=== PATIENT | male | born 1950 | race African-American/Black ===

== ENCOUNTER 2018-03-08 09:49 | Emergency (ER) | payer MEDICARE, OTHER ==
[~2018-03-08] VITALS: Ht 170.2 cm; Wt 70.0 kg
[~2018-03-08 09:49] MED LIST: AMIT10TA6 PO; ASPI81TA47 PO; CILO100T PO; CIME300T55 PO; CLOP75TA33 PO; FLUO40CA8 PO; ZYDS20 PO
[2018-03-08] MEDS ORDERED: PANTOPRAZOLE SODIUM 40 MG/VIAL IV STA (10:23)
[2018-03-08] MEDS ORDERED: FAMOTIDINE 20MG/2ML VIAL IV STA (10:23)
[2018-03-08] MEDS ORDERED: SODIUM CHLORIDE 0.9% 1,000 ML IV ONE (10:23)
[2018-03-08 10:43] LABS: BASOPHILS % 1.2 % (0.0-2.0); CLARITY URINE CLEAR (CLEAR); COLOR URINE YELLOW (YELLOW); EOSINOPHILS % 0.5 % (0.0-5.0); HEMATOCRIT. 44.9 % (42.0-52.0); KETONES URINE NEGATIVE (NEGATIVE); LEUKOCYTE ESTERASE URINE NEGATIVE (NEGATIVE); LYMPHOCYTES % 39.6 % (20.0-50.0); MEAN CORPUSCULAR HEMOGLOBIN 31.4 pg (28.0-32.0); MEAN CORPUSCULAR VOLUME 94.1 fL (80.0-94.0); MEAN PLATELET VOLUME 8.1 fl (7.4-10.4); MONOCYTES % 12.2 % (2.0-8.0); NEUTROPHILS % 46.5 % (40.0-76.0); NITRITE URINE NEGATIVE (NEGATIVE); OCCULT BLOOD URINE NEGATIVE (NEGATIVE); PH URINE 5.5 (4.5-8.0); PLATELET 280 x1000/uL (130-400); PROTEIN URINE NEGATIVE (NEGATIVE); RED BLOOD CELL COUNT 4.77 mill/uL (4.7-6.1); RED CELL DISTRIBUTION WIDTH 15.2 % (11.6-14.6); SPECIFIC GRAVITY URINE 1.011 (1.005-1.030); UROBILINOGEN URINE 0.2 E.U./dL (0.2-1.0)
[2018-03-08 10:49] LABS: CHLORIDE 106 mEq/L (98-107)
[2018-03-08 11:58] VITALS: BP 122/76
== END 2018-03-08 12:00 | disposition home or self-care (01) ==
LOC: ER 10:55
DX: R10.13 Epigastric pain (principal)
CPT/HCPCS: 36415; 71045; 80053; 81003; 83690; 85025; 93005; 96361; 96374; 96375; 99285; C9113; J3490; J7030

== ENCOUNTER 2018-05-23 10:39 | Emergency (ER) | payer MEDICARE, OTHER ==
[~2018-05-23] VITALS: Ht 170.2 cm; Wt 70.5 kg
[2018-05-23] MEDS ORDERED: SODIUM CHLORIDE 0.9% 1,000 ML IV ONE (12:05)
[2018-05-23 14:03] LABS: BASOPHILS % 0.7 % (0.0-2.0); EOSINOPHILS % 0.5 % (0.0-5.0); HEMATOCRIT. 43.3 % (42.0-52.0); HEMOGLOBIN. 14.1 g/dL (14.0-18.0); LYMPHOCYTES % 34.7 % (20.0-50.0); MEAN CORPUSCULAR HEMOGLOBIN 30.7 pg (28.0-32.0); MEAN CORPUSCULAR VOLUME 94.3 fL (80.0-94.0); MEAN PLATELET VOLUME 9.4 fl (7.4-10.4); MONOCYTES % 8.5 % (2.0-8.0); NEUTROPHILS % 55.6 % (40.0-76.0); PLATELET 223 x1000/uL (130-400); RED BLOOD CELL COUNT 4.59 mill/uL (4.7-6.1); RED CELL DISTRIBUTION WIDTH 15.2 % (11.6-14.6)
[2018-05-23 14:09] LABS: CHLORIDE 110 mEq/L (98-107)
[2018-05-23 14:10] LABS: PROTHROMBIN TIME 10.4 sec (9.1-11.1)
[2018-05-23 14:13] LABS: ETHANOL BLOOD < 10 mg/dL
[2018-05-23 15:00] VITALS: BP 140/89
[2018-05-24] MEDS ORDERED: ALBU18HF2 IH (10:54)
[2018-05-24] MEDS ORDERED: AMLO10TA80 PO (18:56)
[2018-05-24] MEDS ORDERED: DANT50CA PO (18:56)
[2018-05-24] MEDS ORDERED: TAMS0.4C31 PO (18:56)
[2018-05-24] MEDS ORDERED: METO25TA6 PO (18:56)
[2018-05-24] MEDS ORDERED: PANT40TA4 PO (18:56)
[2018-05-24] MEDS ORDERED: LOSA50TA20 PO (18:56)
[2018-05-24] MEDS ORDERED: ATOR40TA70 PO (18:56)
[2018-05-24] MEDS ORDERED: MELO-104 PO (18:56)
[2018-05-25] MEDS ORDERED: LOSA50TA20 PO (12:29)
== END 2018-05-23 15:25 | disposition home or self-care (01) ==
LOC: ER 11:20 → CANBEDREQ 05-24 00:42
DX: R53.1 Weakness (principal); R42 Dizziness and giddiness; R51 Headache; R07.89 Other chest pain; R00.0 Tachycardia, unspecified; D17.79 Benign lipomatous neoplasm of other sites; J44.9 Chronic obstructive pulmonary disease, unspecified; I10 Essential (primary) hypertension; Z86.73 Personal history of transient ischemic attack (TIA), and cerebral infarction without residual deficits; Z98.890 Other specified postprocedural states; Z79.899 Other long term (current) drug therapy
CPT/HCPCS: 36415; 70450; 71045; 80053; 83605; 83690; 83880; 84145; 84484; 85025; 85610; 87040; 87077; 87186; 93005; 96360; 99284; G0482; J7030

== ENCOUNTER 2018-05-23 21:55 | Inpatient (IN) | payer MEDICARE, OTHER ==
[~2018-05-23] VITALS: Ht 170.2 cm; Wt 66.9 kg
[2018-05-24] MEDS ORDERED: ONDANSETRON HCL 4MG/2ML INJ IV STA (00:55)
[2018-05-24] MEDS ORDERED: SODIUM CHLORIDE 0.9% 1,000 ML IV ONE (01:03)
[2018-05-24 02:21] LABS: BASOPHILS % 0.7 % (0.0-2.0); CHLORIDE 111 mEq/L (98-107); EOSINOPHILS % 0.8 % (0.0-5.0); HEMATOCRIT. 40.4 % (42.0-52.0); HEMOGLOBIN. 13.2 g/dL (14.0-18.0); LYMPHOCYTES % 34.9 % (20.0-50.0); MEAN CORPUSCULAR HEMOGLOBIN 30.5 pg (28.0-32.0); MEAN CORPUSCULAR VOLUME 93.7 fL (80.0-94.0); MEAN PLATELET VOLUME 8.1 fl (7.4-10.4); MONOCYTES % 10.2 % (2.0-8.0); NEUTROPHILS % 53.4 % (40.0-76.0); PLATELET 258 x1000/uL (130-400); RED BLOOD CELL COUNT 4.31 mill/uL (4.7-6.1); RED CELL DISTRIBUTION WIDTH 14.9 % (11.6-14.6)
[2018-05-24] MEDS ORDERED: ACETAMINOPHEN 325MG TABLET PO ONE (04:15)
[2018-05-24 08:50] LABS: T4 FREE 1.1 ng/dL (0.76-1.46)
[2018-05-24 09:35] VITALS: BP 140/88
[2018-05-24] MEDS ORDERED: ALBU18HF2 IH (10:54)
[2018-05-24] MEDS ORDERED: PNEUMOCOCCAL 23-VAL P-SAC VAC 0.5 ML IM ONE (11:30)
[2018-05-24] MEDS ORDERED: INFLUENZA VIRUS VACCINE(AFLURIA) 0.5ML SYR IM ONE (11:30)
[2018-05-24 12:30] VITALS: BP 152/82
[2018-05-24] MEDS ORDERED: HYDROCODONE/ACETAMINOPHEN 5/325MG TABLET PO PRN (12:45)
[2018-05-24] MEDS ORDERED: DIPHENHYDRAMINE 50MG/ML VIAL IV PRN (12:45)
[2018-05-24] MEDS ORDERED: NA PHOS,M-B/NA PHOS,DI-BA ENEMA 118ML PR PRN (12:45)
[2018-05-24] MEDS ORDERED: GUAIFENESIN 200MG/10ML SUGAR FREE UDC PO PRN (12:45)
[2018-05-24] MEDS ORDERED: ACETAMINOPHEN 650MG SUPP PR PRN (12:45)
[2018-05-24] MEDS ORDERED: CLONIDINE 0.1MG TABLET PO PRN (12:45)
[2018-05-24] MEDS ORDERED: IPRATROPIUM/ALBUTEROL 0.5-3(2.5)MG/3ML NEB INH PRN (12:45)
[2018-05-24] MEDS ORDERED: ACETAMINOPHEN 325MG TABLET PO PRN (12:45)
[2018-05-24] MEDS ORDERED: MAGNESIUM/ALUMINUM HYDROXIDE/SIMETHICONE 30ML UDC PO PRN (12:45)
[2018-05-24] MEDS ORDERED: MEDICATION NOT ON FORMULARY EA (Fluoxetine Hcl (Prozac) 40 MG) PO SCH (13:00)
[2018-05-24] MEDS ORDERED: CILOSTAZOL 100 MG PO SCH (13:00)
[2018-05-24] MEDS ORDERED: ALBUTEROL 6.7GM HFA INHALER INH PRN (13:00)
[2018-05-24] MEDS ORDERED: ASPIRIN 81 MG PO SCH (13:00)
[2018-05-24] MEDS ORDERED: OLANZAPINE 20 MG PO SCH (13:00)
[2018-05-24] MEDS ORDERED: MEDICATION NOT ON FORMULARY EA (Clopidogrel Bisulfate (Clopidogrel) 75 MG) PO SCH (13:00)
[2018-05-24] MEDS ORDERED: ALBUTEROL (0.083%) 2.5MG/3ML NEB HHN PRN (13:15)
[2018-05-24] MEDS: DOCUSATE SODIUM 100MG CAPSULE PO PRN (13:55)
[2018-05-24] MEDS: FLUOXETINE HCL 20MG CAPSULE PO SCH (13:55)
[2018-05-24] MEDS: CLOPIDOGREL 75MG TABLET PO SCH (13:55)
[2018-05-24] MEDS: OLANZAPINE 10MG TABLET PO SCH (13:55)
[2018-05-24] MEDS: ASPIRIN 81MG EC TABLET PO SCH (13:55)
[2018-05-24] MEDS: HYDROCODONE/ACETAMINOPHEN 10/325MG TABLET PO PRN (13:56)
[2018-05-24] MEDS: ENOXAPARIN 40MG/0.4ML SYR SUBCUT SCH (13:56)
[2018-05-24] MEDS: SODIUM CHLORIDE 0.9% INJ 3ML FLUSH IVF SCH ×2 (14:32→21:43)
[2018-05-24] MEDS ORDERED: CILOSTAZOL 100MG TABLET PO SCH (15:00)
[2018-05-24] MEDS: CILOSTAZOL 50 MG TABLET PO SCH (15:05)
[2018-05-24 15:38] LABS: CREATINE KINASE MB FRACTION < 1.0 ng/mL (0.5-3.6)
[2018-05-24 15:40] LABS: CREATINE KINASE 70 IU/L (39-308)
[2018-05-24 16:00] VITALS: BP 120/79
[2018-05-24 16:31] LABS: CLARITY URINE CLEAR (CLEAR); COLOR URINE YELLOW (YELLOW); KETONES URINE NEGATIVE (NEGATIVE); LEUKOCYTE ESTERASE URINE NEGATIVE (NEGATIVE); NITRITE URINE NEGATIVE (NEGATIVE); OCCULT BLOOD URINE NEGATIVE (NEGATIVE); PH URINE 6.5 (4.5-8.0); PROTEIN URINE NEGATIVE (NEGATIVE); SPECIFIC GRAVITY URINE 1.008 (1.005-1.030); UROBILINOGEN URINE 0.2 E.U./dL (0.2-1.0)
[2018-05-24 16:45] LABS: *AMPHETAMINES SCREEN URINE NEGATIVE (NEGATIVE); *BARBITURATES SCREEN URINE NEGATIVE (NEGATIVE); *BENZODIAZEPINES SCREEN URINE NEGATIVE (NEGATIVE); *COCAINE SCREEN URINE NEGATIVE (NEGATIVE); METHADONE URINE SCREEN NEGATIVE (NEGATIVE)
[2018-05-24 16:46] LABS: CANNABINOID URINE SCREEN PRESUMTIVE POSITIVE (NEGATIVE); OPIATES URINE SCREEN NEGATIVE (NEGATIVE); PHENCYCLIDINE URINE SCREEN NEGATIVE (NEGATIVE)
[2018-05-24] MEDS ORDERED: METO25TA6 PO (18:56)
[2018-05-24] MEDS ORDERED: ATOR40TA70 PO (18:56)
[2018-05-24] MEDS ORDERED: MELO-104 PO (18:56)
[2018-05-24] MEDS ORDERED: DANT50CA PO (18:56)
[2018-05-24] MEDS ORDERED: PANT40TA4 PO (18:56)
[2018-05-24] MEDS ORDERED: LOSA50TA20 PO (18:56)
[2018-05-24] MEDS ORDERED: AMLO10TA80 PO (18:56)
[2018-05-24] MEDS ORDERED: TAMS0.4C31 PO (18:56)
[2018-05-24 20:00] VITALS: BP 119/74
[2018-05-24] MEDS ORDERED: ATORVASTATIN CALCIUM 10MG TABLET PO SCH (21:00)
[2018-05-24] MEDS: ATORVASTATIN CALCIUM 40MG TABLET PO SCH (21:29)
[2018-05-24] MEDS: METOPROLOL TARTRATE 25MG TABLET PO SCH (21:30)
[2018-05-24] MEDS: AMLODIPINE 5MG TABLET PO SCH (21:30)
[2018-05-24] MEDS: MELOXICAM 7.5MG TABLET PO SCH (21:31)
[2018-05-24] MEDS: TAMSULOSIN HCL 0.4MG SR CAPSULE PO SCH (21:31)
[2018-05-24] MEDS: DANTROLENE SODIUM 25MG CAPSULE PO SCH (21:42)
[2018-05-25] VITALS (8 sets, daily range): BP systolic 78–126; BP diastolic 52–84
[2018-05-25 00:58] LABS: CREATINE KINASE 60 IU/L (39-308)
[2018-05-25 01:00] LABS: CREATINE KINASE MB FRACTION < 1.0 ng/mL (0.5-3.6)
[2018-05-25] MEDS: SODIUM CHLORIDE 0.9% INJ 3ML FLUSH IVF SCH ×3 (06:34→21:11)
[2018-05-25] MEDS: PANTOPRAZOLE 40MG DR TABLET PO SCH (06:34)
[2018-05-25 07:32] LABS: BASOPHILS % 0.7 % (0.0-2.0); EOSINOPHILS % 1.2 % (0.0-5.0); HEMATOCRIT. 39.7 % (42.0-52.0); HEMOGLOBIN. 13.1 g/dL (14.0-18.0); LYMPHOCYTES % 22.2 % (20.0-50.0); MEAN CORPUSCULAR HEMOGLOBIN 30.8 pg (28.0-32.0); MEAN CORPUSCULAR VOLUME 93.4 fL (80.0-94.0); MONOCYTES % 10.1 % (2.0-8.0); NEUTROPHILS % 65.8 % (40.0-76.0); PLATELET 258 x1000/uL (130-400); RED BLOOD CELL COUNT 4.25 mill/uL (4.7-6.1)
[2018-05-25 08:00] LABS: CHLORIDE 111 mEq/L (98-107)
[2018-05-25 08:09] LABS: LDL CHOLESTEROL 135 mg/dL (5-100)
[2018-05-25 08:10] LABS: CREATINE KINASE 54 IU/L (39-308); HDL CHOLESTEROL 50 mg/dL (40-59)
[2018-05-25 08:13] LABS: CREATINE KINASE MB FRACTION < 1.0 ng/mL (0.5-3.6)
[2018-05-25] MEDS ORDERED: AMLODIPINE 10MG TABLET PO SCH (09:00)
[2018-05-25] MEDS: CILOSTAZOL 50 MG TABLET PO SCH (09:16)
[2018-05-25] MEDS: DANTROLENE SODIUM 25MG CAPSULE PO SCH ×2 (09:16→18:36)
[2018-05-25] MEDS: METOPROLOL TARTRATE 25MG TABLET PO SCH ×2 (09:16→21:00)
[2018-05-25] MEDS: AMLODIPINE 5MG TABLET PO SCH (09:16)
[2018-05-25] MEDS: ENOXAPARIN 40MG/0.4ML SYR SUBCUT SCH (09:17)
[2018-05-25] MEDS: AMITRIPTYLINE 10MG TABLET PO SCH (09:17)
[2018-05-25] MEDS: MELOXICAM 7.5MG TABLET PO SCH (09:17)
[2018-05-25] MEDS: LOSARTAN POTASSIUM 50 MG TABLET PO SCH (09:17)
[2018-05-25] MEDS: DOCUSATE SODIUM 100MG CAPSULE PO PRN ×2 (09:17→18:36)
[2018-05-25] MEDS: CLOPIDOGREL 75MG TABLET PO SCH (09:17)
[2018-05-25] MEDS: FLUOXETINE HCL 20MG CAPSULE PO SCH (09:17)
[2018-05-25] MEDS: ASPIRIN 81MG EC TABLET PO SCH (09:17)
[2018-05-25] MEDS: OLANZAPINE 10MG TABLET PO SCH (09:17)
[2018-05-25] MEDS ORDERED: LOSA50TA20 PO (12:29)
[2018-05-25] MEDS ORDERED: SODIUM CHLORIDE 0.9% 1000ML BAG (SEPSIS BOLUS) IV ONE (13:30)
[2018-05-25] MEDS ORDERED: SODIUM CHLORIDE 0.9% 500ML IV NR (13:45)
[2018-05-25] MEDS ORDERED: ALBUMIN HUMAN 25GM/100ML (25%) IV NR (17:00)
[2018-05-25] MEDS: TAMSULOSIN HCL 0.4MG SR CAPSULE PO SCH (21:00)
[2018-05-25] MEDS: ATORVASTATIN CALCIUM 40MG TABLET PO SCH (21:10)
[2018-05-26] VITALS (8 sets, daily range): BP systolic 83–118; BP diastolic 53–70
[2018-05-26] MEDS: HYDROCODONE/ACETAMINOPHEN 10/325MG TABLET PO PRN ×2 (02:49→11:49)
[2018-05-26] MEDS: PANTOPRAZOLE 40MG DR TABLET PO SCH (05:48)
[2018-05-26] MEDS: SODIUM CHLORIDE 0.9% INJ 3ML FLUSH IVF SCH ×2 (05:48→13:55)
[2018-05-26] MEDS: METOPROLOL TARTRATE 25MG TABLET PO SCH (09:00)
[2018-05-26] MEDS: FLUOXETINE HCL 20MG CAPSULE PO SCH (09:03)
[2018-05-26] MEDS: CILOSTAZOL 50 MG TABLET PO SCH (09:03)
[2018-05-26] MEDS: ASPIRIN 81MG EC TABLET PO SCH (09:03)
[2018-05-26] MEDS: MELOXICAM 7.5MG TABLET PO SCH (09:03)
[2018-05-26] MEDS: CLOPIDOGREL 75MG TABLET PO SCH (09:03)
[2018-05-26] MEDS: AMITRIPTYLINE 10MG TABLET PO SCH (09:03)
[2018-05-26] MEDS: DOCUSATE SODIUM 100MG CAPSULE PO PRN (09:04)
[2018-05-26] MEDS: OLANZAPINE 10MG TABLET PO SCH (09:04)
[2018-05-26] MEDS: DANTROLENE SODIUM 25MG CAPSULE PO SCH (09:04)
[2018-05-26] MEDS: LOSARTAN POTASSIUM 50 MG TABLET PO SCH (09:04)
[2018-05-26] MEDS: ENOXAPARIN 40MG/0.4ML SYR SUBCUT SCH (09:06)
[2018-05-26] MEDS ORDERED: SODIUM CHLORIDE 0.9% 1000ML BAG (SEPSIS BOLUS) IV ONE (15:00)
[2018-05-26] MEDS ORDERED: SODIUM CHLORIDE 0.9% 500ML IV NR (15:00)
== END 2018-05-26 16:33 | disposition home or self-care (01) | DRG 312 ==
LOC: ER 21:55 → 5WST 05-24 01:22 → ENRESERV 05-24 08:31
PROVIDERS: ADMIT Family Medicine; ATTEND Family Medicine
DX: I95.1 Orthostatic hypotension (principal); I69.351 Hemiplegia and hemiparesis following cerebral infarction affecting right dominant side; J44.9 Chronic obstructive pulmonary disease, unspecified; I10 Essential (primary) hypertension; I73.9 Peripheral vascular disease, unspecified; E78.5 Hyperlipidemia, unspecified; Z87.891 Personal history of nicotine dependence; Z91.19 Patient's noncompliance with other medical treatment and regimen
CPT/HCPCS: 36415; 71045; 80048; 80061; 80305; 82550; 82553; 83036; 83605; 83880; 84145; 84439; 84443; 84484; 85379; 87077; 87186; 90686; 90732; 93005; 93306; 93880; 93970; 96360; 96361; 96374; 99284; 99285; G0482; J1650; J2405; J7030; J7040; P9047

== ENCOUNTER 2020-08-29 10:40 | Emergency (ER) | payer MEDICARE, OTHER ==
[~2020-08-29] VITALS: Ht 170.2 cm; Wt 72.0 kg
[~2020-08-29 10:40] MED LIST changes: +ALBU18HF2 IH; +ATOR40TA70 PO; -CIME300T55 PO; +DANT50CA PO; +MELO-104 PO; +PANT40TA51 PO; +TAMS0.4C31 PO
[2020-08-29] MEDS ORDERED: IBUPROFEN 800MG TABLET PO ONE (12:45)
[2020-08-29] MEDS ORDERED: T3 PO (12:47)
[2020-08-29] MEDS ORDERED: IBUP-2028 PO (12:47)
[2020-08-29 13:06] VITALS: BP 147/82
== END 2020-08-29 13:08 | disposition home or self-care (01) ==
LOC: ER 10:40
DX: M54.42 Lumbago with sciatica, left side (principal); M25.562 Pain in left knee; M25.552 Pain in left hip; Z91.81 History of falling; Z86.73 Personal history of transient ischemic attack (TIA), and cerebral infarction without residual deficits
CPT/HCPCS: 72100; 73502; 73562; 99284

== ENCOUNTER 2021-01-17 18:44 | Emergency (ER) | payer MEDICARE, OTHER ==
[~2021-01-17] VITALS: Ht 170.2 cm; Wt 69.0 kg
[~2021-01-17 18:44] MED LIST changes: +IBUP-2028 PO; +T3 PO
[2021-01-17] MEDS ORDERED: MORPHINE SULFATE 4 MG/ML CPJ (NOT FOR IM USE) IV STA (21:40)
[2021-01-17 22:13] LABS: BASOPHILS % 0.7 % (0.0-2.0); EOSINOPHILS % 1.3 % (0.0-5.0); HEMATOCRIT. 36.5 % (42.0-52.0); HEMOGLOBIN. 12.6 g/dL (14.0-18.0); LYMPHOCYTES % 33.8 % (20.0-50.0); MEAN CORPUSCULAR HEMOGLOBIN 31.7 pg (28.0-32.0); MEAN PLATELET VOLUME 7.5 fl (7.4-10.4); MONOCYTES % 10.2 % (2.0-8.0); PLATELET 245 x1000/uL (130-400); RED BLOOD CELL COUNT 3.97 mill/uL (4.7-6.1); RED CELL DISTRIBUTION WIDTH 15.6 % (11.6-14.6)
[2021-01-17 22:20] LABS: CHLORIDE 104 mEq/L (98-107)
[2021-01-17 22:21] LABS: PROTHROMBIN TIME 10.3 sec (9.6-11.0)
[2021-01-17 22:38] LABS: CLARITY URINE CLEAR (CLEAR); COLOR URINE YELLOW (YELLOW); KETONES URINE NEGATIVE (NEGATIVE); LEUKOCYTE ESTERASE URINE NEGATIVE (NEGATIVE); NITRITE URINE NEGATIVE (NEGATIVE); OCCULT BLOOD URINE NEGATIVE (NEGATIVE); PH URINE 6.5 (4.5-8.0); PROTEIN URINE NEGATIVE (NEGATIVE); SPECIFIC GRAVITY URINE 1.003 (1.005-1.030); UROBILINOGEN URINE 0.2 E.U./dL (0.2-1.0)
[2021-01-17] MEDS ORDERED: NA PHOS,M-B/NA PHOS,DI-BA ENEMA 118ML PR ONE (23:15)
[2021-01-17] MEDS ORDERED: POLY17PO3 MT (23:54)
[2021-01-17] MEDS ORDERED: BISA-81 MT (23:54)
[2021-01-17] MEDS ORDERED: NA P133E4 RC (23:54)
[2021-01-18 00:07] VITALS: BP 125/85
== END 2021-01-18 00:10 | disposition home or self-care (01) ==
LOC: ER 19:04 → EDBEDREQ 21:43 → ER 01-18 00:10 → CANBEDREQ 01-18 03:35
DX: K59.00 Constipation, unspecified (principal); Z86.73 Personal history of transient ischemic attack (TIA), and cerebral infarction without residual deficits; Z96.698 Presence of other orthopedic joint implants
CPT/HCPCS: 36415; 74176; 80053; 81003; 83690; 84484; 85025; 85610; 93005; 96374; 99285; J2270

== ENCOUNTER → 2021-02-03 | Outpatient (CLI) | payer MEDICARE, OTHER ==
[~2021-02-03] MED LIST changes: +BISA-81 MT; +GADOTERATE MEGLUMINE 5 MMOL/10 ML VIAL IV ONE; +NA P133E4 RC; +POLY17PO3 MT
== END | disposition home or self-care (01) ==
LOC: MRI 09:34
PROVIDERS: ATTEND Internal Medicine Cardiovascular Disease
DX: I67.82 Cerebral ischemia (principal); R20.0 Anesthesia of skin
CPT/HCPCS: 70553; A9577

== ENCOUNTER 2022-01-04 13:18 | Emergency (ER) | payer MEDICARE, MEDICAID ==
[~2022-01-04] VITALS: Ht 170.2 cm; Wt 80.0 kg
[~2022-01-04 13:18] MED LIST changes: -GADOTERATE MEGLUMINE 5 MMOL/10 ML VIAL IV ONE
[2022-01-04] MEDS ORDERED: KETOROLAC 30MG/ML VIAL IV STA (19:00)
[2022-01-04 19:21] LABS: BASOPHILS % 0.7 % (0.0-2.0); EOSINOPHILS % 0.7 % (0.0-5.0); HEMATOCRIT. 41.9 % (42.0-52.0); HEMOGLOBIN. 13.9 g/dL (14.0-18.0); LYMPHOCYTES % 37.5 % (20.0-50.0); MEAN CORPUSCULAR HEMOGLOBIN 32.1 pg (28.0-32.0); MEAN CORPUSCULAR VOLUME 97.1 fL (80.0-94.0); MEAN PLATELET VOLUME 7.5 fl (7.4-10.4); NEUTROPHILS % 49.1 % (40.0-76.0); PLATELET 280 x1000/uL (130-400); RED BLOOD CELL COUNT 4.32 mill/uL (4.7-6.1); RED CELL DISTRIBUTION WIDTH 15.2 % (11.6-14.6)
[2022-01-04 19:28] LABS: CHLORIDE 96 mEq/L (98-107)
[2022-01-04 21:24] VITALS: BP 154/88
== END 2022-01-04 21:25 | disposition home or self-care (01) ==
LOC: ER 14:02
DX: R60.9 Edema, unspecified (principal); Z86.73 Personal history of transient ischemic attack (TIA), and cerebral infarction without residual deficits; Z79.899 Other long term (current) drug therapy
CPT/HCPCS: 36415; 71045; 80053; 83880; 85025; 93005; 93970; 96374; 99285; J1885

== ENCOUNTER 2022-08-06 07:05 | Inpatient (IN) | payer MEDICARE, OTHER ==
[~2022-08-06] VITALS: Ht 170.2 cm; Wt 68.5 kg
[~2022-08-06 07:05] MED LIST changes: -CILO100T PO; +CILO100T3 PO
[2022-08-06 08:33] LABS: BASOPHILS % 0.8 % (0.0-2.0); EOSINOPHILS % 0.5 % (0.0-5.0); HEMATOCRIT. 37.4 % (42.0-52.0); HEMOGLOBIN. 12.8 g/dL (14.0-18.0); LYMPHOCYTES % 46.2 % (20.0-50.0); MEAN CORPUSCULAR HEMOGLOBIN 32.6 pg (28.0-32.0); MEAN PLATELET VOLUME 7.2 fl (7.4-10.4); MONOCYTES % 13.6 % (2.0-8.0); NEUTROPHILS % 38.9 % (40.0-76.0); PLATELET 251 x1000/uL (130-400); RED BLOOD CELL COUNT 3.93 mill/uL (4.7-6.1); RED CELL DISTRIBUTION WIDTH 14.5 % (11.6-14.6)
[2022-08-06 08:46] LABS: CHLORIDE 94 mEq/L (98-107)
[2022-08-06 10:20] VITALS: BP 119/96
[2022-08-06 10:22] LABS: CLARITY URINE CLEAR (CLEAR); COLOR URINE YELLOW (YELLOW); KETONES URINE NEGATIVE (NEGATIVE); LEUKOCYTE ESTERASE URINE TRACE (NEGATIVE); NITRITE URINE NEGATIVE (NEGATIVE); OCCULT BLOOD URINE NEGATIVE (NEGATIVE); PH URINE 5.5 (4.5-8.0); PROTEIN URINE NEGATIVE (NEGATIVE); SPECIFIC GRAVITY URINE 1.005 (1.005-1.030); UROBILINOGEN URINE 0.2 E.U./dL (0.2-1.0)
[2022-08-06 11:56] VITALS: BP 150/95
[2022-08-06] MEDS: PANTOPRAZOLE SODIUM 40 MG/VIAL IV SCH ×2 (12:33→22:17)
[2022-08-06 12:48] LABS: TOTAL IRON BINDING CAPACITY 351 ug/dL (250-450)
[2022-08-06 13:14] LABS: FOLIC ACID (FOLATE) SERUM 15.6 ng/mL (>5.38)
[2022-08-06] MEDS ORDERED: LORAZEPAM 0.5MG TABLET PO PRN (13:45)
[2022-08-06] MEDS ORDERED: IPRATROPIUM/ALBUTEROL 0.5-3(2.5)MG/3ML NEB HHN PRN (13:45)
[2022-08-06] MEDS ORDERED: DOCUSATE SODIUM 100MG CAPSULE PO PRN (13:45)
[2022-08-06] MEDS ORDERED: ACETAMINOPHEN 325MG TABLET PO PRN ×2 (13:45)
[2022-08-06] MEDS ORDERED: ONDANSETRON HCL 4MG/2ML INJ IV PRN (13:45)
[2022-08-06] MEDS: SODIUM CHLORIDE 0.9% 1,000 ML IV SCH (14:17)
[2022-08-06] MEDS ORDERED: LACTULOSE 20G/30ML UDC PO NR (16:45)
[2022-08-06 17:05] VITALS: BP 141/90
[2022-08-06] MEDS: CEFTRIAXONE 1GM PREMIX 50 ML IV SCH (17:06)
[2022-08-06] MEDS: HYDROCODONE/ACETAMINOPHEN 5/325MG TABLET PO PRN ×2 (17:11→22:17)
[2022-08-06] MEDS ORDERED: NALOXONE HCL 0.4MG/ML VIAL IV PRN (17:30)
[2022-08-06 20:00] VITALS: BP 140/93
[2022-08-06] MEDS: SENNOSIDES 8.6MG TABLET PO SCH (21:01)
[2022-08-06] MEDS: OLANZAPINE 10MG TABLET PO SCH (21:01)
[2022-08-06] MEDS ORDERED: IOHEXOL-350 100 ML BOTTLE ONE (23:21)
[2022-08-07] VITALS: BP 119/70
[2022-08-07 04:00] VITALS: BP 133/61
[2022-08-07 05:58] LABS: BASOPHILS % 1.3 % (0.0-2.0); EOSINOPHILS % 2.1 % (0.0-5.0); HEMATOCRIT. 39.8 % (42.0-52.0); HEMOGLOBIN. 13.5 g/dL (14.0-18.0); LYMPHOCYTES % 58.5 % (20.0-50.0); MEAN CORPUSCULAR HEMOGLOBIN 32.8 pg (28.0-32.0); MEAN CORPUSCULAR VOLUME 96.8 fL (80.0-94.0); MEAN PLATELET VOLUME 7.3 fl (7.4-10.4); MONOCYTES % 14.1 % (2.0-8.0); PLATELET 217 x1000/uL (130-400); RED BLOOD CELL COUNT 4.11 mill/uL (4.7-6.1); RED CELL DISTRIBUTION WIDTH 14.8 % (11.6-14.6)
[2022-08-07 06:04] LABS: INR 1.1; PROTHROMBIN TIME 11.4 sec (9.6-11.0)
[2022-08-07] MEDS: SODIUM CHLORIDE 0.9% 1,000 ML IV SCH ×2 (06:26→20:31)
[2022-08-07 08:00] VITALS: BP 125/68
[2022-08-07 08:00] LABS: CHLORIDE 109 mEq/L (98-107)
[2022-08-07] MEDS: DOCUSATE SODIUM 250MG CAPSULE PO SCH (08:37)
[2022-08-07] MEDS: PANTOPRAZOLE SODIUM 40 MG/VIAL IV SCH ×2 (11:12→20:27)
[2022-08-07 12:00] VITALS: BP 151/71
[2022-08-07] MEDS ORDERED: BISACODYL 10MG SUPP PR NR (13:45)
[2022-08-07] MEDS: CEFTRIAXONE 1GM PREMIX 50 ML IV SCH (14:13)
[2022-08-07] MEDS: HYDROCODONE/ACETAMINOPHEN 5/325MG TABLET PO PRN ×2 (14:18→23:55)
[2022-08-07 16:00] VITALS: BP 152/71
[2022-08-07 16:30] LABS: CREATINE KINASE 148 IU/L (39-308)
[2022-08-07 20:00] VITALS: BP 138/75
[2022-08-07] MEDS: TAMSULOSIN HCL 0.4MG SR CAPSULE PO SCH (20:23)
[2022-08-07] MEDS: ATORVASTATIN CALCIUM 40MG TABLET PO SCH (20:23)
[2022-08-07] MEDS: OLANZAPINE 10MG TABLET PO SCH (20:26)
[2022-08-07] MEDS: SENNOSIDES 8.6MG TABLET PO SCH (20:31)
[2022-08-08 00:01] VITALS: BP 154/93
[2022-08-08 04:00] VITALS: BP 133/76
[2022-08-08 06:09] LABS: INR 1.1; PROTHROMBIN TIME 11.4 sec (9.6-11.0)
[2022-08-08 06:11] LABS: HEMATOCRIT. 39.6 % (42.0-52.0); HEMOGLOBIN. 13.7 g/dL (14.0-18.0); MEAN CORPUSCULAR HEMOGLOBIN 33.2 pg (28.0-32.0); MEAN CORPUSCULAR VOLUME 95.7 fL (80.0-94.0); MEAN PLATELET VOLUME 7.7 fl (7.4-10.4); PLATELET 229 x1000/uL (130-400); RED BLOOD CELL COUNT 4.14 mill/uL (4.7-6.1); RED CELL DISTRIBUTION WIDTH 14.4 % (11.6-14.6)
[2022-08-08 08:00] VITALS: BP 151/76
[2022-08-08 08:43] LABS: CHLORIDE 109 mEq/L (98-107)
[2022-08-08 08:59] LABS: CREATINE KINASE 129 IU/L (39-308)
[2022-08-08] MEDS ORDERED: OLANZAPINE 10MG TABLET PO SCH (09:00)
[2022-08-08] MEDS: AMITRIPTYLINE 10MG TABLET PO SCH (09:12)
[2022-08-08] MEDS: FLUOXETINE HCL 20MG CAPSULE PO SCH (09:12)
[2022-08-08] MEDS: CLOPIDOGREL 75MG TABLET PO SCH (09:12)
[2022-08-08] MEDS: DOCUSATE SODIUM 250MG CAPSULE PO SCH (09:20)
[2022-08-08] MEDS: PANTOPRAZOLE SODIUM 40 MG/VIAL IV SCH ×2 (09:47→21:00)
[2022-08-08] MEDS: HYDROCODONE/ACETAMINOPHEN 5/325MG TABLET PO PRN ×2 (10:14→22:30)
[2022-08-08 12:00] VITALS: BP 163/95
[2022-08-08 14:38] LABS: PLATELET ESTIMATE NORMAL
[2022-08-08] MEDS: CEFTRIAXONE 1,000 MG in DEXTROSE 5% WATER 50 ML IV SCH (15:38)
[2022-08-08] MEDS: SODIUM CHLORIDE 0.9% 1,000 ML IV SCH (15:39)
[2022-08-08] MEDS ORDERED: IOHEXOL-350 100 ML BOTTLE ONE (15:53)
[2022-08-08 16:00] VITALS: BP 158/87
[2022-08-08] MEDS ORDERED: BISACODYL 10MG SUPP PR NR (16:15)
[2022-08-08 20:00] VITALS: BP 108/73
[2022-08-08] MEDS: ATORVASTATIN CALCIUM 40MG TABLET PO SCH (21:00)
[2022-08-08] MEDS: OLANZAPINE 10MG TABLET PO SCH (21:00)
[2022-08-08] MEDS: TAMSULOSIN HCL 0.4MG SR CAPSULE PO SCH (21:00)
[2022-08-08] MEDS: SENNOSIDES 8.6MG TABLET PO SCH (21:00)
[2022-08-09 00:05] VITALS: BP 132/67
[2022-08-09 04:00] VITALS: BP 109/70
[2022-08-09 06:53] LABS: EOSINOPHILS % 3.6 % (0.0-5.0); HEMATOCRIT. 38.6 % (42.0-52.0); HEMOGLOBIN. 12.9 g/dL (14.0-18.0); LYMPHOCYTES % 38.3 % (20.0-50.0); MEAN CORPUSCULAR HEMOGLOBIN 32.1 pg (28.0-32.0); MEAN CORPUSCULAR VOLUME 96.1 fL (80.0-94.0); MONOCYTES % 13.5 % (2.0-8.0); NEUTROPHILS % 43.6 % (40.0-76.0); PLATELET 223 x1000/uL (130-400); RED BLOOD CELL COUNT 4.02 mill/uL (4.7-6.1); RED CELL DISTRIBUTION WIDTH 14.6 % (11.6-14.6)
[2022-08-09 07:09] LABS: CHLORIDE 111 mEq/L (98-107); CREATINE KINASE 114 IU/L (39-308)
[2022-08-09 08:00] VITALS: BP 154/98
[2022-08-09] MEDS ORDERED: BISACODYL 10MG SUPP PR NR (09:15)
[2022-08-09] MEDS: CLOPIDOGREL 75MG TABLET PO SCH (09:20)
[2022-08-09] MEDS: AMITRIPTYLINE 10MG TABLET PO SCH (09:20)
[2022-08-09] MEDS: FLUOXETINE HCL 20MG CAPSULE PO SCH (09:20)
[2022-08-09] MEDS: PANTOPRAZOLE SODIUM 40 MG/VIAL IV SCH ×2 (09:21→22:28)
[2022-08-09] MEDS: DOCUSATE SODIUM 250MG CAPSULE PO SCH (09:32)
[2022-08-09] MEDS: SODIUM CHLORIDE 0.9% 1,000 ML IV SCH (09:42)
[2022-08-09] MEDS ORDERED: LACTULOSE 20G/30ML UDC PO PRN (11:15)
[2022-08-09 12:00] VITALS: BP 177/97
[2022-08-09] MEDS: CEFTRIAXONE 1,000 MG in DEXTROSE 5% WATER 50 ML IV SCH (13:35)
[2022-08-09] MEDS: HYDROCODONE/ACETAMINOPHEN 5/325MG TABLET PO PRN ×2 (13:35→22:41)
[2022-08-09] MEDS: CLONIDINE 0.1MG TABLET PO PRN (14:07)
[2022-08-09] MEDS ORDERED: SORBITOL 70% SOLN 30ML PO NR (14:30)
[2022-08-09] MEDS ORDERED: NA PHOS,M-B/NA PHOS,DI-BA ENEMA 118ML PR PRN (14:30)
[2022-08-09 16:00] VITALS: BP 131/77
[2022-08-09 20:00] VITALS: BP 130/77
[2022-08-09] MEDS: OLANZAPINE 10MG TABLET PO SCH (21:12)
[2022-08-09] MEDS: SENNOSIDES 8.6MG TABLET PO SCH (21:14)
[2022-08-09] MEDS: ATORVASTATIN CALCIUM 40MG TABLET PO SCH (21:14)
[2022-08-09] MEDS: TAMSULOSIN HCL 0.4MG SR CAPSULE PO SCH (21:14)
[2022-08-10] VITALS: BP 140/80
[2022-08-10] MEDS: SODIUM CHLORIDE 0.9% 1,000 ML IV SCH (01:05)
[2022-08-10 04:00] VITALS: BP 123/77
[2022-08-10 05:42] LABS: INR 1.1; PROTHROMBIN TIME 11.6 sec (9.6-11.0)
[2022-08-10 06:04] LABS: EOSINOPHILS % 6.3 % (0.0-5.0); HEMATOCRIT. 39.9 % (42.0-52.0); HEMOGLOBIN. 13.6 g/dL (14.0-18.0); LYMPHOCYTES % 55.9 % (20.0-50.0); MEAN CORPUSCULAR HEMOGLOBIN 32.8 pg (28.0-32.0); MEAN CORPUSCULAR VOLUME 96.4 fL (80.0-94.0); MEAN PLATELET VOLUME 7.5 fl (7.4-10.4); MONOCYTES % 13.6 % (2.0-8.0); NEUTROPHILS % 23.2 % (40.0-76.0); PLATELET 229 x1000/uL (130-400); RED BLOOD CELL COUNT 4.14 mill/uL (4.7-6.1); RED CELL DISTRIBUTION WIDTH 14.7 % (11.6-14.6)
[2022-08-10 07:44] LABS: CHLORIDE 111 mEq/L (98-107)
[2022-08-10 08:00] VITALS: BP 163/76
[2022-08-10] MEDS: PANTOPRAZOLE SODIUM 40 MG/VIAL IV SCH (08:50)
[2022-08-10] MEDS: CLONIDINE 0.1MG TABLET PO PRN (08:54)
[2022-08-10] MEDS: DOCUSATE SODIUM 250MG CAPSULE PO SCH (09:00)
[2022-08-10] MEDS: FLUOXETINE HCL 20MG CAPSULE PO SCH (09:00)
[2022-08-10] MEDS: CLOPIDOGREL 75MG TABLET PO SCH (09:00)
[2022-08-10] MEDS: AMITRIPTYLINE 10MG TABLET PO SCH (09:00)
[2022-08-10 12:00] VITALS: BP 133/89
[2022-08-10] MEDS: CEFTRIAXONE 1,000 MG in DEXTROSE 5% WATER 50 ML IV SCH (13:48)
[2022-08-10] MEDS ORDERED: OLAN10TA72 PO (14:51)
[2022-08-10 15:56] VITALS: BP 133/112
[2022-08-10 16:00] VITALS: BP 119/71
== END 2022-08-10 19:12 | disposition home health service (06) | DRG 394 ==
LOC: ER 07:05 → 7WST 08:57 → EDBEDREQTM 08:58 → EDBEDREQ 08:58
PROVIDERS: ADMIT Family Medicine Adult Medicine; ATTEND Family Medicine Adult Medicine
DX: K64.8 Other hemorrhoids (principal); G45.9 Transient cerebral ischemic attack, unspecified; I69.351 Hemiplegia and hemiparesis following cerebral infarction affecting right dominant side; I74.5 Embolism and thrombosis of iliac artery; K56.41 Fecal impaction; D53.9 Nutritional anemia, unspecified; I10 Essential (primary) hypertension; I73.9 Peripheral vascular disease, unspecified; Z20.822 Contact with and (suspected) exposure to COVID-19; J44.9 Chronic obstructive pulmonary disease, unspecified; N28.1 Cyst of kidney, acquired; F32.A Depression, unspecified; F41.9 Anxiety disorder, unspecified; Z87.891 Personal history of nicotine dependence; Z79.02 Long term (current) use of antithrombotics/antiplatelets; Z79.82 Long term (current) use of aspirin; Z79.899 Other long term (current) drug therapy
CPT/HCPCS: 36415; 71045; 74177; 75635; 76700; 76705; 80048; 80053; 80061; 80076; 81003; 82105; 82270; 82550; 82607; 82728; 82746; 83540; 83550; 83605; 84484; 85025; 85044; 86850; 86900; 87426; 93005; 93306; 99285; C9113; J0696; J7030; J7060; Q9967

== ENCOUNTER 2023-05-22 13:20 | Inpatient (IN) | payer MEDICARE, MEDICAID ==
[~2023-05-22] VITALS: Ht 170.2 cm; Wt 58.1 kg
[~2023-05-22 13:20] MED LIST changes: +AMLO5TAB88 PO; +LOSA50TA41 PO; +OLAN10TA72 PO
[2023-05-22 14:07] LABS: ALANINE AMINOTRANSFERASE 10 IU/L (10-49); ALBUMIN 4.1 g/dL (3.2-4.8); ASPARTATE AMINOTRANSFERASE 17 IU/L (<34); BILIRUBIN TOTAL 0.4 mg/dL (0.1-1.0); CALCIUM 9.1 mg/dL (8.7-10.4); CARBON DIOXIDE 23 mEq/L (21-32); CHLORIDE 99 mEq/L (98-107); CREATININE 0.9 mg/dL (0.6-1.3); GLUCOSE 83 mg/dL (70-105); POTASSIUM 3.7 mEq/L (3.5-5.1); PROTEIN TOTAL 7.4 g/dL (6.0-8.3); SODIUM 130 mEq/L (136-145); TROPONIN I HIGH SENSITIVITY 5 ng/L (3.0-53); UREA NITROGEN BLOOD 11 mg/dL (9-23)
[2023-05-22 14:09] LABS: BASOPHILS % 0.6 % (0.0-2.0); EOSINOPHILS % 0.7 % (0.0-5.0); HEMATOCRIT. 36.4 % (42.0-52.0); HEMOGLOBIN. 12.3 g/dL (14.0-18.0); LYMPHOCYTES % 39.5 % (20.0-50.0); MEAN CORPUSCULAR HEMOGLOBIN 30.7 pg (28.0-32.0); MEAN CORPUSCULAR HGB CONC 33.9 g/dL (31.0-37.0); MEAN CORPUSCULAR VOLUME 90.7 fL (80.0-94.0); MEAN PLATELET VOLUME 7.1 fl (7.4-10.4); MONOCYTES % 10.4 % (2.0-8.0); NEUTROPHILS % 48.8 % (40.0-76.0); PLATELET 319 x1000/uL (130-400); RED BLOOD CELL COUNT 4.02 mill/uL (4.7-6.1); RED CELL DISTRIBUTION WIDTH 18.7 % (11.6-14.6); WHITE BLOOD COUNT 4.4 x1000/uL (4.5-11.0)
[2023-05-22] MEDS ORDERED: IOHEXOL-350 100 ML BOTTLE ONE (15:12)
[2023-05-22] MEDS ORDERED: ACETAMINOPHEN 325MG TABLET PO PRN ×2 (18:30)
[2023-05-22] MEDS ORDERED: NALOXONE HCL 0.4MG/ML VIAL IV PRN (18:45)
[2023-05-22 19:18] LABS: CLARITY URINE CLEAR (CLEAR); COLOR URINE YELLOW (YELLOW); GLUCOSE URINE NEGATIVE (NEGATIVE); KETONES URINE NEGATIVE (NEGATIVE); LEUKOCYTE ESTERASE URINE NEGATIVE (NEGATIVE); NITRITE URINE NEGATIVE (NEGATIVE); OCCULT BLOOD URINE NEGATIVE (NEGATIVE); PH URINE 5.5 (4.5-8.0); PROTEIN URINE NEGATIVE (NEGATIVE); SPECIFIC GRAVITY URINE 1.004 (1.005-1.030); UROBILINOGEN URINE 0.2 E.U./dL (0.2-1.0)
[2023-05-22 19:33] LABS: *AMPHETAMINES SCREEN URINE NEGATIVE (NEGATIVE); *BARBITURATES SCREEN URINE NEGATIVE (NEGATIVE); *BENZODIAZEPINES SCREEN URINE NEGATIVE (NEGATIVE); *COCAINE SCREEN URINE NEGATIVE (NEGATIVE); CANNABINOID URINE SCREEN PRESUMPTIVE POSITIVE (NEGATIVE); ECSTASY MDMA SCREEN URINE NEGATIVE (NEGATIVE); METHADONE URINE SCREEN Neg (NEGATIVE); OPIATES URINE SCREEN NEGATIVE (NEGATIVE); PHENCYCLIDINE URINE SCREEN NEGATIVE (NEGATIVE)
[2023-05-22] MEDS: MORPHINE SULFATE 2 MG/ML CPJ (NOT FOR IM USE) IV PRN (21:37)
[2023-05-22] MEDS: ENOXAPARIN 40MG/0.4ML SYR SUBCUT SCH (21:40)
[2023-05-23 00:30] VITALS: BP 171/92; PULSE 89; RESP 20; TEMP 97.3
[2023-05-23] MEDS: MORPHINE SULFATE 2 MG/ML CPJ (NOT FOR IM USE) IV PRN ×7 (01:23→23:07)
[2023-05-23 04:00] VITALS: BP 161/79; PULSE 79; RESP 20; TEMP 97.5
[2023-05-23] MEDS: ENOXAPARIN 40MG/0.4ML SYR SUBCUT SCH (06:00)
[2023-05-23] MEDS: LABETALOL HCL 100MG TABLET PO SCH ×3 (06:38→20:36)
[2023-05-23 07:42] LABS: BASOPHILS % 0.9 % (0.0-2.0); EOSINOPHILS % 0.5 % (0.0-5.0); HEMOGLOBIN. 12.5 g/dL (14.0-18.0); LYMPHOCYTES % 44.3 % (20.0-50.0); MEAN CORPUSCULAR HEMOGLOBIN 30.6 pg (28.0-32.0); MEAN CORPUSCULAR HGB CONC 33.7 g/dL (31.0-37.0); MEAN CORPUSCULAR VOLUME 90.6 fL (80.0-94.0); MEAN PLATELET VOLUME 7.2 fl (7.4-10.4); MONOCYTES % 10.1 % (2.0-8.0); NEUTROPHILS % 44.2 % (40.0-76.0); PLATELET 310 x1000/uL (130-400); RED BLOOD CELL COUNT 4.08 mill/uL (4.7-6.1); RED CELL DISTRIBUTION WIDTH 18.6 % (11.6-14.6); WHITE BLOOD COUNT 3.3 x1000/uL (4.5-11.0)
[2023-05-23 08:00] VITALS: BP 123/72; PULSE 69; RESP 18; TEMP 98.4
[2023-05-23 08:15] LABS: CALCIUM 8.8 mg/dL (8.7-10.4); CARBON DIOXIDE 25 mEq/L (21-32); CHLORIDE 105 mEq/L (98-107); CREATININE 0.8 mg/dL (0.6-1.3); GLUCOSE 84 mg/dL (70-105); POTASSIUM 3.6 mEq/L (3.5-5.1); SODIUM 138 mEq/L (136-145); UREA NITROGEN BLOOD 8 mg/dL (9-23)
[2023-05-23] MEDS ORDERED: NITROGLYCERIN 0.4MG TABLET SL SL PRN (09:15)
[2023-05-23] MEDS: DOCUSATE SODIUM SUGAR FREE 100MG/10ML UDC NG SCH ×2 (10:57→18:13)
[2023-05-23 12:00] VITALS: BP 155/95; PULSE 73; RESP 18; TEMP 97.8
[2023-05-23 15:03] LABS: TROPONIN I HIGH SENSITIVITY 8 ng/L (3.0-53)
[2023-05-23 16:00] VITALS: BP 146/80; PULSE 63; RESP 18; TEMP 98.4
[2023-05-23 20:00] VITALS: BP 115/82; PULSE 74; RESP 19; TEMP 98.1
[2023-05-24] VITALS: BP 132/69; PULSE 98; RESP 19; TEMP 97.5
[2023-05-24 04:00] VITALS: BP 118/88; PULSE 70; RESP 19; TEMP 97.5
[2023-05-24 07:05] LABS: EOSINOPHILS % 1.2 % (0.0-5.0); HEMATOCRIT. 37.3 % (42.0-52.0); HEMOGLOBIN. 12.6 g/dL (14.0-18.0); LYMPHOCYTES % 35.5 % (20.0-50.0); MEAN CORPUSCULAR HEMOGLOBIN 30.6 pg (28.0-32.0); MEAN CORPUSCULAR HGB CONC 33.7 g/dL (31.0-37.0); MEAN CORPUSCULAR VOLUME 90.8 fL (80.0-94.0); MEAN PLATELET VOLUME 7.2 fl (7.4-10.4); NEUTROPHILS % 49.3 % (40.0-76.0); PLATELET 311 x1000/uL (130-400); RED BLOOD CELL COUNT 4.11 mill/uL (4.7-6.1); RED CELL DISTRIBUTION WIDTH 18.1 % (11.6-14.6); WHITE BLOOD COUNT 4.3 x1000/uL (4.5-11.0)
[2023-05-24 07:17] LABS: CALCIUM 9.2 mg/dL (8.7-10.4); CARBON DIOXIDE 25 mEq/L (21-32); CHLORIDE 102 mEq/L (98-107); CREATININE 0.9 mg/dL (0.6-1.3); GAMMA GLUTAMYL TRANSPEPTIDASE 12 IU/L (<73); GLUCOSE 111 mg/dL (70-105); POTASSIUM 4.1 mEq/L (3.5-5.1); SODIUM 136 mEq/L (136-145); UREA NITROGEN BLOOD 12 mg/dL (9-23)
[2023-05-24 08:00] VITALS: BP 110/80; PULSE 65; RESP 18; TEMP 97.8
[2023-05-24] MEDS: DOCUSATE SODIUM SUGAR FREE 100MG/10ML UDC NG SCH ×2 (08:29→18:27)
[2023-05-24] MEDS: MORPHINE SULFATE 2 MG/ML CPJ (NOT FOR IM USE) IV PRN (08:29)
[2023-05-24] MEDS: LABETALOL HCL 100MG TABLET PO SCH (08:29)
[2023-05-24] MEDS ORDERED: QUETIAPINE FUMARATE 25MG TABLET PO SCH (09:00)
[2023-05-24] MEDS ORDERED: GADOTERATE MEGLUMINE 5 MMOL/10 ML VIAL IV ONE (10:33)
[2023-05-24 12:00] VITALS: BP 112/78; PULSE 64; RESP 18; TEMP 98
[2023-05-24] MEDS ORDERED: MORPHINE SULFATE 4 MG/ML CPJ (NOT FOR IM USE) IV PRN (15:00)
[2023-05-24 16:00] VITALS: BP 137/83; PULSE 68; RESP 18; TEMP 97.8
[2023-05-24 17:36] VITALS: BP 137/83; PULSE 64; TEMP 97.5; O2SAT 97
[2023-05-25 08:10] LABS: ALPHA FETOPROTEIN TUMOR MARKER < 1.8 ng/mL (0.0-8.4); CA 19-9 8 U/mL (0-35)
== END 2023-05-24 18:57 | disposition home or self-care (01) | DRG 206 ==
LOC: ER 13:20 → 5WST 15:00 → EDBEDREQ 15:11 → EDBEDREQTM 15:11 → 7WST 05-23 00:26
PROVIDERS: ADMIT Preventive Medicine Clinical Informatics; ATTEND Preventive Medicine Clinical Informatics
DX: M94.0 Chondrocostal junction syndrome [Tietze] (principal); E87.1 Hypo-osmolality and hyponatremia; I74.5 Embolism and thrombosis of iliac artery; I10 Essential (primary) hypertension; J44.9 Chronic obstructive pulmonary disease, unspecified; F32.9 Major depressive disorder, single episode, unspecified; F41.9 Anxiety disorder, unspecified; I73.9 Peripheral vascular disease, unspecified; K86.89 Other specified diseases of pancreas; Z79.02 Long term (current) use of antithrombotics/antiplatelets; Z79.82 Long term (current) use of aspirin; Z87.891 Personal history of nicotine dependence; Z80.0 Family history of malignant neoplasm of digestive organs; Z79.899 Other long term (current) drug therapy; Z86.73 Personal history of transient ischemic attack (TIA), and cerebral infarction without residual deficits
CPT/HCPCS: 36415; 71045; 74177; 74183; 80048; 80053; 80305; 81003; 82105; 82378; 82977; 84484; 85025; 86301; 93005; 93306; 99285; A9577; J1650; J2270; Q9967

== ENCOUNTER 2024-02-14 15:55 | Emergency (ER) | payer MEDICARE, MEDICAID ==
[~2024-02-14] VITALS: Ht 175.3 cm; Wt 69.0 kg
[2024-02-14 15:58] VITALS: TEMP 98; O2SAT 99
[2024-02-14] MEDS: ACETAMINOPHEN 325MG TABLET PO ONE (16:45)
[2024-02-14 19:47] VITALS: BP 138/77; PULSE 82; RESP 18; O2SAT 100
== END 2024-02-14 19:47 | disposition home or self-care (01) ==
LOC: ER 15:55
DX: I83.891 Varicose veins of right lower extremity with other complications (principal); F41.9 Anxiety disorder, unspecified; F32.A Depression, unspecified; I10 Essential (primary) hypertension; Z79.899 Other long term (current) drug therapy; Z98.890 Other specified postprocedural states
CPT/HCPCS: 93971; 99284